=== PATIENT | male | born 1965 | race Caucasian/White ===

== ENCOUNTER 2017-10-29 15:33 | Emergency (ER) | payer SELFPAY ==
[~2017-10-29] VITALS: Ht 172.7 cm; Wt 85.0 kg
[~2017-10-29 15:33] MED LIST: CYCL-36 PO; ERYT1O LEFT EYE; OXYC15TA PO; REST30CA PO
[2017-10-29 16:03] VITALS: BP 150/84; PULSE 97; RESP 16; TEMP 98.5; O2SAT 100
[2017-10-29] MEDS ORDERED: OXYC30TA62 PO (16:19)
--- NOTE | 2017-10-29 16:38 | PD ---
HPI Chief Complaint: Fall Time Seen by Provider: 16:25 Travel History International Travel<30 days: No Contact w/Intl Traveler<30days: No Traveled to known affect area: No History of Present Illness HPI 52-year-old male presents to the emergency department for evaluation after a fall that occurred today. Patient states he was climbing on a tire rectae get a tire down when the shelf broke and he fell. He states he landed on his left leg and then his knee gave out causing him to fall. He denies any head injury or LOC. No neck pain. No chest pain or abdominal pain. No vomiting. Patient complains of right thumb pain, low back pain, left knee pain. Pain is worse with movement, alleviated with rest. Current pain is 6/10 without radiation. Patient reports history of chronic back and neck pain. He takes oxycodone and Flexeril at home. Patient has small abrasion/skin tear to right lower leg. He states his tetanus immunization is up-to-date. Moderate severity. PFSH Past Medical History Blood Disorders: No Anxiety: Yes Cancer: No Cardiovascular Problems: No Chemotherapy: No Genitourinary: No Musculoskeletal: Yes (BACK INJURY DUE TO HAVE SX SOON) Psychiatric: No Reproductive: No Respiratory: Yes (FREQUENT BRONCHITIS) Immunizations Current: Yes Pneumonia: Yes (2011) Radiation Therapy: No Past Surgical History Neurologic Surgery: Yes (ULNAR NERVE) Other Surgery: Yes (C5-C6 DISC SX) Social History Alcohol Use: Yes (OCCASIONALLY) Tobacco Use: No Substance Use: No Allergies-Medications (Allergen,Severity, Reaction): Coded Allergies: No Known Allergies (Verified Adverse Reaction, Unknown, 10/29/17) Reported Meds & Prescriptions Reported Meds & Active Scripts Active Reported Oxycontin (Oxycodone HCl) 30 Mg Tab 30 Mg PO Q8HR Flexeril (Cyclobenzaprine HCl) 10 Mg Tab 10 Mg PO HS Review of Systems Except as stated in HPI: all other systems reviewed are Neg Physical Exam Narrative GENERAL: Well-nourished, well-developed male patient, afebrile. SKIN: Focused skin assessment warm/dry. Patient has a 1 cm skin tear with a small abrasion to the right lower leg. HEAD: Normocephalic. Atraumatic. EYES: No scleral icterus. No injection or drainage. NECK: Supple, trachea midline. No JVD or lymphadenopathy. CARDIOVASCULAR: Regular rate and rhythm without murmurs, gallops, or rubs. Bilateral radial and pedal pulses are 2+. RESPIRATORY: Breath sounds equal bilaterally. No accessory muscle use. Lungs sounds are clear to auscultation. GASTROINTESTINAL: Abdomen soft, non-tender, nondistended. MUSCULOSKELETAL: No cyanosis, or edema. Patient has tenderness to palpation over left anterior knee. He has full flexion and extension, but pain with flexion. She has tenderness to palpation over right thumb. No snuffbox tenderness. BACK: No obvious deformity. No CVA tenderness. No midline cervical spine tenderness. He has full rotation without pain or stiffness. He has mild tenderness to palpation over midline lumbar spine. Data Data Last Documented VS Vital Signs Date Time Temp Pulse Resp B/P (MAP) Pulse Ox O2 Delivery O2 Flow Rate FiO2 10/29/17 17:44 16 10/29/17 16:03 98.5 97 150/84 (106) 100 Orders Orders Knee, Complete (4vws) (10/29/17 ) Spine, Lumbar - Ltd (Ap & Lat) (10/29/17 ) Ketorolac Inj (Toradol Inj) (10/29/17 16:45) Orphenadrine Inj (Norflex Inj) (10/29/17 16:45) Hand, Complete ([id number]) (10/29/17 16:38) Splint Or Brace Apply/Monitor (10/29/17 17:50) Splint Or Brace Apply/Monitor (10/29/17 17:50) MDM Medical Decision Making Medical Screen Exam Complete: Yes Emergency Medical Condition: Yes Medical Record Reviewed: Yes Interpretation(s) Last Impressions Hand X-Ray 10/29/17 1638 Signed Impressions: Service Date/Time: Sunday, October 29, 2017 17:10 - CONCLUSION: No acute right hand abnormality is identified. Liam Gregorio MD Lumbar Spine X-Ray 10/29/17 0000 Signed Impressions: Service Date/Time: Sunday, October 29, 2017 17:16 - CONCLUSION: Mild spondylolisthesis at the levels above previous lumbar fusion. No definite acute injury Liam Costa MD Knee X-Ray 10/29/17 0000 Signed Impressions: Service Date/Time: Wednesday, October 29, 2017 17:20 - CONCLUSION: Mild degenerative changes. No evidence of acute bony injury Liam Costa MD Differential Diagnosis Contusion versus fracture versus dislocation versus sprain versus strain Narrative Course 52-year-old male presents to the emergency department for evaluation after he fell today. Patient states his tetanus immunization is up-to-date. X-ray lumbar spine, right hand, left knee are ordered and pending. Patient is given Toradol 60 mg IM, Norflex 60 mg IM for pain. X-ray lumbar spine shows no definite acute injury. X-ray right hand shows no acute abnormality. X-ray of the left knee no evidence of acute bony injury. Patient is provided right Velcro wrist splint and Lito bandage to left knee. He declined crutches. Patient has pain medication and muscle relaxants at home. He is encouraged to follow-up with orthopedist if pain continues or does not improve. Patient is to return here for any acute worsening of symptoms. The patient was discharged in stable condition with instructions, including return instructions and follow up instructions. Diagnosis Primary Impression: Left knee sprain Qualified Codes: S83.92XA - Sprain of unspecified site of left knee, initial encounter Additional Impressions: Sprain of right hand Qualified Codes: S63.91XA - Sprain of unspecified part of right wrist and hand , initial encounter Low back pain Qualified Codes: M54.5 - Low back pain Referrals: Orthopedist call for appointment Patient Instructions: General Instructions Departure Forms: Tests/Procedures, Work Release Enter return to work date: Nov 01, 2017 Additional Instructions: Continue prescribed pain medication and muscle relaxants at home as needed for pain. Ice for 20 minutes 4-5 times daily. Wear Velcro wrist splint and Lito bandage as needed for support. Follow-up with orthopedist if symptoms do not improve or worsen. Return to the emergency department for any acute worsening of symptoms. Med/Other Pt SpecificInfo: No Change to Meds Disposition: 01 DISCHARGE HOME Condition: Stable BraedenTabitha Oct 29, 2017 16:37
[2017-10-29] MEDS ORDERED: ORPHENADRINE INJ 60 MG/2 ML AMP IM ONE (16:45)
[2017-10-29] MEDS ORDERED: KETOROLAC TROMETHAMINE 60 MG/2 ML (IM) VIAL IM ONE (16:45)
--- NOTE | 2017-10-29 17:29 | RADRPT ---
EXAM DATE/TIME: 10/29/2017 17:10 [facility] COMPARISON: No previous studies available for comparison. INDICATIONS : Right hand pain after fall. MEDICAL HISTORY : 4th digit fracture. SURGICAL HISTORY : None. ENCOUNTER: Initial ACUITY: 1 day PAIN SCORE: 7/10 LOCATION: Right hand, 1st digit. FINDINGS: Three views of the right hand demonstrate no fracture or dislocation. Mineralization is within normal limits. There is osteoarthritis at the first carpometacarpal joint. No soft tissue abnormality or ra diopaque foreign body is identified. CONCLUSION: No acute right hand abnormality is identified. Liam Gregorio MD on October 29, 2017 at 17:27 Board Certified Radiologist. This report was verified electronically.
--- NOTE | 2017-10-29 17:33 | RADRPT ---
EXAM DATE/TIME: 10/29/2017 17:20 [facility] COMPARISON: No previous studies available for comparison. INDICATIONS : Left knee pain after fall. MEDICAL HISTORY : None. SURGICAL HISTORY : None. ENCOUNTER: Initial ACUITY: 1 day PAIN SCORE: 8/10 LOCATION: Left lateral knee. FINDINGS: Mineralization is normal. There is no evidence of fracture or joint effusion. There is medial compart ment joint space narrowing and tricompartmental osteophyte formation. CONCLUSION: Mild degenerative changes. No evidence of acute bony injury Liam Costa MD on October 29, 2017 at 17:32 Board Certified Radiologist. This report was verified electronically.
--- NOTE | 2017-10-29 17:33 | RADRPT ---
EXAM DATE/TIME: 10/29/2017 17:16 [facility] COMPARISON: No previous studies available for comparison. INDICATIONS : Lower back pain after fall. MEDICAL HISTORY : None. SURGICAL HISTORY : Lumbar fusion. ENCOUNTER: Initial ACUITY: 1 day PAIN SCORE: 7/10 LOCATION: Lower back. FINDINGS: The patient has undergone previous anterior fusion at L4-5 and L5-S1. The hardware is intact alignmen t through the fusion is satisfactory. There is mild retrolisthesis of L2 relative to L3 and of L3 rel ative to L4. Significant disc space narrowing and vacuum disc phenomena present at these 2 levels. Th ere are small endplate osteophytes, primarily ventral at all visualized levels. There is no definite evidence of fracture. CONCLUSION: Mild spondylolisthesis at the levels above previous lumbar fusion. No definite acute injury Liam Costa MD on October 29, 2017 at 17:29 Board Certified Radiologist. This report was verified electronically.
[2017-10-29 17:44] VITALS: RESP 16
== END 2017-10-29 18:13 | disposition home or self-care (01) ==
LOC: NEPK 15:33
DX: S83.92XA Sprain of unspecified site of left knee, initial encounter (principal); S63.91XA Sprain of unspecified part of right wrist and hand, initial encounter; M54.5 Low back pain; W17.89XA Other fall from one level to another, initial encounter
CPT/HCPCS: 72100; 73130; 73564; 96372; 99284; J1885; J2360; L3908

== ENCOUNTER 2018-01-07 11:21 | Emergency (ER) | payer SELFPAY ==
[~2018-01-07] VITALS: Ht 172.7 cm; Wt 81.2 kg
[~2018-01-07 11:21] MED LIST changes: -ERYT1O LEFT EYE; -OXYC15TA PO; +OXYC30TA62 PO; -REST30CA PO
[2018-01-07 11:30] VITALS: BP 151/122; PULSE 119; RESP 38; TEMP 98.7; O2SAT 98
[2018-01-07] MEDS ORDERED: predniSONE 20 MG TAB PO ONE (11:45)
--- NOTE | 2018-01-07 11:51 | PD ---
HPI Chief Complaint: Respiratory Symptoms Time Seen by Provider: 11:35 Travel History International Travel<30 days: No Contact w/Intl Traveler<30days: No Traveled to known affect area: No History of Present Illness HPI 52-year-old male presents to the emergency department with complaint of cough, chest congestion, shortness of breath, wheezing 2-1/2 weeks. Says he gets sick like this every year and is given a Z-Devan, Augmentin, and a shot of steroids in the butt and all is good. He is requesting exactly this regimen. He has been using his son's albuterol inhaler every few hours; last used 6 AM this morning. Says it was helping his symptoms, but has not really been helping recently. Reports subjective fever 1 week ago, but denies recent fevers. Denies chest pain. Reports nasal congestion. Symptoms somewhat relieved with albuterol inhaler. No known aggravating factors. Symptoms are moderate in severity. No primary care provider. No known allergies. History of chronic neck and back pain. Denies other significant past medical history. Has no other medical complaints. No other modifying factors or associated signs and symptoms. PFSH Past Medical History Blood Disorders: No Anxiety: Yes Cancer: No Cardiovascular Problems: No Chemotherapy: No Genitourinary: No Musculoskeletal: Yes (BACK INJURY DUE TO HAVE SX SOON) Psychiatric: No Reproductive: No Respiratory: Yes (FREQUENT BRONCHITIS) Immunizations Current: Yes Pneumonia: Yes (2011) Radiation Therapy: No Past Surgical History Neurologic Surgery: Yes (ULNAR NERVE) Other Surgery: Yes (C5-C6 DISC SX) Social History Alcohol Use: Yes (OCCASIONALLY) Tobacco Use: No Substance Use: No Allergies-Medications (Allergen,Severity, Reaction): Coded Allergies: No Known Allergies (Verified Adverse Reaction, Unknown, 01/07/18) Reported Meds & Prescriptions Reported Meds & Active Scripts Active Azithromycin 500 Mg Tab 500 Mg PO DAILY Tessalon Perles (Benzonatate) 100 Mg Cap 100 Mg PO TID PRN 3 Days Deltasone (Prednisone) 20 Mg Tab 40 Mg PO DAILY 4 Days start 01/08/2018 Ventolin Hfa 18 GM Inh (Albuterol Sulfate) 90 Mcg/Act Aer 2 Puff INH Q4-6H PRN Reported Oxycontin (Oxycodone HCl) 30 Mg Tab 20 Mg PO Q8HR Review of Systems Except as stated in HPI: all other systems reviewed are Neg Physical Exam Narrative GENERAL: Well-nourished, well-developed male patient, in no acute distress; afebrile, nontoxic-appearing; patient is very hyper SKIN: Warm and dry. HEAD: Atraumatic. Normocephalic. EYES: Pupils equal and round. No scleral icterus. No injection or drainage. ENT: Mucosa pink and moist. No erythema or exudates. No uvular edema. No uvular , palatal, or tonsillar deviation. Airway patent. Nares without nasal blood, purulent drainage or septal hematoma. EARS: Bilateral pinnae and external canals appear within normal limits. Bilateral tympanic membranes without erythema, dullness or perforation. NECK: Trachea midline. No lymphadenopathy. CARDIOVASCULAR: Regular rate and rhythm. No murmur appreciated. RESPIRATORY: No accessory muscle use. Lungs with Wheezing throughout to auscultation. Breath sounds equal bilaterally. No retractions. With tachypnea. No Audible wheezing noted. GASTROINTESTINAL: Rounded. MUSCULOSKELETAL: No obvious deformities. No clubbing. No cyanosis. No edema. NEUROLOGICAL: Awake and alert. Oriented 3. No obvious cranial nerve deficits. Motor grossly within normal limits. Normal speech. Moves all extremities. 5/5 strength to all extremities. PSYCHIATRIC: Appropriate mood and affect; insight and judgment normal. Data Data Last Documented VS Vital Signs Date Time Temp Pulse Resp B/P (MAP) Pulse Ox O2 Delivery O2 Flow Rate FiO2 01/07/18 13:15 111 16 128/85 (99) 97 Room Air 01/07/18 11:30 98.7 Orders Orders Chest, Single Ap (01/07/18 11:43) Prednisone (Deltasone) (01/07/18 11:45) Albuterol-Ipratropium Neb (Duoneb Neb) (01/07/18 11:45) MDM Medical Decision Making Medical Screen Exam Complete: Yes Emergency Medical Condition: Yes Medical Record Reviewed: Yes Differential Diagnosis Bronchitis, pneumonia, COPD, asthma Narrative Course 52-year-old male with 2-1/2 weeks. The patient is very hyper and his heart rate is increased and he has tachypnea. He is in no acute distress. Oxygen saturation is 98% on room air. Wheezing throughout on auscultation of the lung mirza. No audible wheezing noted. DuoNeb 3, Deltasone, chest x-ray ordered. 1315: Chest x-ray concluded: Chest X-Ray 01/07/18 1143 Signed Impressions: Service Date/Time: Sunday, January 07, 2018 11:46 - CONCLUSION: Focal mild patchy infiltrate in the medial right lower lung suggestive of pneumonia. Recommend followup exam in 3-4 weeks after appropriate medical therapy to ensure resolution. Kingston Eaton MD Patient provided a copy of the x-ray report and instructed to follow-up in 3-4 weeks to ensure resolution of pneumonia. Patient discussed with Dr. Resendez, my attending physician, and she agrees with discharge. On reexamination the patient's lung sounds are with mild wheezing throughout. He reports improvement in symptoms. He is in no acute distress. Oxygen saturation is 97% on room air. Heart rate recheck is 111 bpm. The patient is very hyperactive has received multiple breathing treatments. He denies chest tightness or shortness of breath. A azithromycin, Tessalon Perles, Deltasone, Ventolin inhaler prescribed for home. Instructed patient to follow up with primary care provider. Patient verbalizes understanding and agreement with treatment plan. Patient is medically cleared and stable for discharge. Discussed reasons to return to the emergency department. Patient agrees with treatment plan. The patients vital signs are stable and the patient is stable for outpatient follow- up and treatment. Patient discharged home, stable and in no acute distress. Diagnosis Primary Impression: Pneumonia Qualified Codes: J18.1 - Lobar pneumonia, unspecified organism Referrals: [facility] Primary Care Physician Patient Instructions: Community Acquired Pneumonia (ED), General Instructions Additional Instructions: Antibiotics as prescribed and complete full course Use Albuterol inhaler as prescribed Take oral steroids as prescribed and complete full course [id number] decongestants or antihistamines as directed and as needed for symptom management Drink plenty of fluids to prevent dehydration Use hot air humidifier to decrease cough exacerbation Turn off ceiling fans and sleep with head of bed elevated Avoid triggers such as second hand smoke, dust, known allergens Follow-up in 3-4 weeks for repeat chest x-ray to ensure resolution of pneumonia Follow-up with your primary care provider Return to the emergency department immediately with worsening of symptoms Med/Other Pt SpecificInfo: Prescription(s) given Scripts Azithromycin (Azithromycin) 500 Mg Tab 500 MG PO DAILY for Infection, #5 TAB 0 Refills Prov: Rassi,Verenice K BAR HOST 01/07/18 Benzonatate (Tessalon Perles) 100 Mg Cap 100 MG PO TID Y for COUGH for 3 Days, CAP 0 Refills Prov: Verenice KimP 01/07/18 Prednisone (Deltasone) 20 Mg Tab 40 MG PO DAILY for 4 Days, #8 TAB 0 Refills start 01/08/2018 Prov: Verenice KimP 01/07/18 Albuterol 18 GM Inh (Ventolin Hfa 18 GM Inh) 90 Mcg/Act Aer 2 PUFF INH Q4-6H Y for SOB/WHEEZING, #1 INHALER 0 Refills Prov: Verenice Kim 01/07/18 Disposition: 01 DISCHARGE HOME Condition: Stable Verenice Kim January 07, 2018 11:51
[2018-01-07] MEDS: RESP: ALBUTEROL 2.5 MG/IPRATROPIUM 0.5 MG NEB (SCH) INH ×2 (12:02→12:03)
--- NOTE | 2018-01-07 12:18 | RADRPT ---
EXAM DATE/TIME: 01/07/2018 11:46 [facility] COMPARISON: No previous studies available for comparison. INDICATIONS : Chest pains with syncope and numbness radiating into left arm and hand. MEDICAL HISTORY : None. SURGICAL HISTORY : None. ENCOUNTER: Initial ACUITY: 1 day PAIN SCORE: 5/10 LOCATION: Left chest FINDINGS: Mild patchy infiltrate in the medial right lower lung. Otherwise, the lungs are grossly clear and wel l-aerated. There are no pleural effusions or pulmonary edema. The heart size is within normal limits. Bony structures are grossly intact. There is no evidence of pneumothorax. CONCLUSION: Focal mild patchy infiltrate in the medial right lower lung suggestive of pneumonia. Recommend follow up exam in 3-4 weeks after appropriate medical therapy to ensure resolution. Kingston Eaton MD on January 07, 2018 at 12:15 Board Certified Radiologist. This report was verified electronically.
[2018-01-07] MEDS ORDERED: VENTAER INH (13:12)
[2018-01-07] MEDS ORDERED: PRED-503 PO (13:12)
[2018-01-07] MEDS ORDERED: AZIT500T2 PO (13:12)
[2018-01-07] MEDS ORDERED: BENZ100 PO (13:12)
[2018-01-07 13:15] VITALS: BP 128/85; PULSE 111; RESP 16; O2SAT 97
== END 2018-01-07 13:40 | disposition home or self-care (01) ==
LOC: NEPD 11:21
DX: J18.1 Lobar pneumonia, unspecified organism (principal)
CPT/HCPCS: 71045; 94640; 94664; 99283; J7512